=== PATIENT | male | born 2000 | race Caucasian/White ===

== ENCOUNTER 2023-06-07 18:47 | Emergency (ER) | payer MEDICAID, OTHER ==
[~2023-06-07] VITALS: Ht 175.3 cm; Wt 90.7 kg
[2023-06-07 19:39] VITALS: BP 141/69; TEMP 98
[2023-06-07] MEDS ORDERED: IBUP-1953 PO (21:14)
[2023-06-07 21:34] VITALS: O2SAT 98
== END 2023-06-07 21:27 | disposition home or self-care (01) ==
LOC: ER 18:47
DX: S92.352A Displaced fracture of fifth metatarsal bone, left foot, initial encounter for closed fracture (principal); X50.1XXA Overexertion from prolonged static or awkward postures, initial encounter; Y93.89 Activity, other specified; Y92.89 Other specified places as the place of occurrence of the external cause; Y99.8 Other external cause status
CPT/HCPCS: 73630-TC